=== PATIENT | male | born 1975 | race Two or more races ===

== ENCOUNTER 2024-07-16 12:38 | Emergency (ER) | payer BC ==
[2024-07-16 13:04] VITALS: BP 125/73; PULSE 88; RESP 20; TEMP 97.9; BMI 27.3
[2024-07-16] MEDS ORDERED: LIDOCAINE 4% PATCH TP ONE (13:32)
[2024-07-16] MEDS ORDERED: METHOCARBAMOL 500 MG TABLET ONE (13:32)
[2024-07-16] MEDS ORDERED: KETOROLAC TROMETHAMINE 30 MG/1 ML VIAL ONE ×2 (13:33)
[2024-07-16] MEDS: LIDOCAINE 4% PATCH TP ONE (13:42)
[2024-07-16] MEDS: KETOROLAC TROMETHAMINE 30 MG/1 ML VIAL IM ONE (13:43)
[2024-07-16] MEDS: METHOCARBAMOL 500 MG TABLET PO ONE (13:44)
[2024-07-16] MEDS ORDERED: ACETAMINOPHEN 325 MG TABLET (FP) PO ONE (15:49)
[2024-07-16] MEDS ORDERED: ACETAMINOPHEN 325 MG TABLET (FP) ONE (16:09)
== END 2024-07-16 16:12 | disposition home or self-care (01) ==
LOC: JER 12:38
PROC: 3E0233Z Introduction of Anti-inflammatory into Muscle, Percutaneous Approach (ICD-10-PCS; principal; 2024-07-16)
DX: M62.838 Other muscle spasm (principal); M54.6 Pain in thoracic spine; M54.2 Cervicalgia; R20.0 Anesthesia of skin; R07.89 Other chest pain
CPT/HCPCS: 71046-TC-FY; 82962; 93005; 93010; 99285-25